=== PATIENT | male | born 1990 | race African-American/Black ===

== ENCOUNTER 2019-09-01 18:03 | Emergency (ER) | payer MEDICAID ==
[~2019-09-01] VITALS: Ht 162.6 cm; Wt 83.5 kg
[2019-09-01 18:20] VITALS: BP 138/86
--- NOTE | 2019-09-01 18:28 | NUR ---
ER Nurse Note: Patient walked in to ER from home due to N/V/D and body aches x 3days. Patient alert and oriented x4 and amulatory. Skin clean and intact. Calm and cooperative. No acute distress noted at this time.
--- NOTE | 2019-09-01 18:40 | NUR ---
ED Nurse Note: blood collected and sent to lab.
--- NOTE | 2019-09-01 18:46 | NUR ---
ED Nurse Note: pt went down for CT in stable condition.
--- NOTE | 2019-09-01 19:00 | Emergency Room Report ---
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 Paramedics came to the scene and evaluated him and reported that he had elevated blood pressure and heart rate however was a stabilized and blood pressure went down. They gave him the option to return to the emergency room in an hour if symptoms worsen. Patient reports that when he was a kid he was diagnosed with irregular heartbeat and having PVCs however has not seen a trash collector supervisor yet. Patient reports that up until a month ago he was drinking on daily basis and doing marijuana smoke as well as tobacco smoke. Patient continues to smoke tobacco however reports that a month ago he stopped smoking marijuana as well as drinking alcohol. At this time denies vomiting and abdominal pain however does complain of 3 bouts of diarrhea with generalized body ache that started 3 days ago with cough and congestion. Patient reports that due to his symptoms he has been taking DayQuil and NyQuil. Feeling lightheaded and reports that he has vertigo in the left ER prior to his near syncope episode. Complains of minor tinnitus however denies any head injury or fall. Erythema of the inner ear and left ear is noted. Denies urinary symptoms , chest pain, shortness of breath, palpitation no other associated symptoms. Allergies: Coded Allergies: No Known Allergies (Unverified , 09/01/19) Patient History Past Medical History: see triage record Past Surgical History: none Pertinent Family History: none Social History: Reports: smoking, alcohol use Immunizations: UTD Reviewed Nursing Documentation: PMH: Agreed; PSxH: Agreed Nursing Documentation-PMH Hx Asthma: Yes Review of Systems All Other Systems: negative except mentioned in HPI Physical Exam Vital Signs Date Time Temp Pulse Resp B/P (MAP) Pulse Ox O2 Delivery O2 Flow Rate FiO2 09/01/19 18:14 97.7 85 18 138/86 (103) 97 Room Air Sp02 EP Interpretation: reviewed, normal General Appearance: no apparent distress, alert, GCS 15, non-toxic Head: normocephalic, atraumatic Eyes: bilateral eye normal inspection, bilateral eye PERRL ENT: hearing grossly normal, normal pharynx, no angioedema, normal voice Neck: full range of motion, supple/symm/no masses Respiratory: chest non-tender, lungs clear, normal breath sounds, no wheezing, speaking full sentences Cardiovascular #1: regular rate, rhythm, no edema Cardiovascular #2: 2+ carotid (R), 2+ carotid (L), 2+ radial (R), 2+ radial (L) , 2+ dorsalis pedis (R), 2+ dorsalis pedis (L) Gastrointestinal: normal bowel sounds, non tender, soft, non-distended, no guarding, no rebound Rectal: deferred Genitourinary: normal inspection, no CVA tenderness Musculoskeletal: back normal, gait/station normal, normal range of motion, non- tender Neurologic: alert, oriented x3, responsive, motor strength/tone normal, sensory intact, speech normal Psychiatric: judgement/insight normal, memory normal, mood/affect normal, no suicidal/homicidal ideation Skin: no rash Lymphatic: no adenopathy Medical Decision Making PA Attestation All my diagnosis and treatment plans were reviewed ad discussed with my supervising physician Dr. 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 Paramedics came to the scene and evaluated him and reported that he had elevated blood pressure and heart rate however was a stabilized and blood pressure went down. They gave him the option to return to the emergency room in an hour if symptoms worsen. Patient reports that when he was a kid he was diagnosed with irregular heartbeat and having PVCs however has not seen a trash collector supervisor yet. Patient reports that up until a month ago he was drinking on daily basis and doing marijuana smoke as well as tobacco smoke. Patient continues to smoke tobacco however reports that a month ago he stopped smoking marijuana as well as drinking alcohol. At this time denies vomiting and abdominal pain however does complain of 3 bouts of diarrhea with generalized body ache that started 3 days ago with cough and congestion. Patient reports that due to his symptoms he has been taking DayQuil and NyQuil. Feeling lightheaded and reports that he has vertigo in the left ER prior to his near syncope episode. Complains of minor tinnitus however denies any head injury or fall. Erythema of the inner ear and left ear is noted. Denies urinary symptoms , chest pain, shortness of breath, palpitation no other associated symptoms. Ddx considered but are not limited to: Dizziness due to alcohol intoxication, dizziness unspecified, dizziness due to head trauma, dizziness secondary to cardiac reasons, syncope secondary to cardiac, second Hardy to electrolyte abnormality, neurological deficits, unspecified Vital signs: are WNL, pt. is afebrile H&PE are most consistent with: Near syncope unspecified, URI, gastroenteritis, vertigo, otitis media ORDERS: CBC, CMP, UA, tox screen, CK, EtOH, tox screen, chest x-ray, EKG, head CT noncontrast, Augmentin, Phenergan ER intervention: NS bolus DISCHARGE: At this time pt. is stable for d/c to home. Will provide printed patient care instructions, and any necessary prescriptions. Care plan and follow up instructions have been discussed with the patient prior to discharge. Follow-up with your trash collector supervisor regarding your past history of PVCs also if worsening symptoms return to emergency room. Primary care physician needs to follow-up with you in order to do further evaluation for your symptoms. EKG Diagnostic Results Rate: normal Rhythm: NSR ST Segments: no acute changes Other Impression No acute ST changes Chest X-Ray Diagnostic Results Chest X-Ray Diagnostic Results : Chest X-Ray Ordered: Yes # of Views/Limited/Complete: 1 View Indication: Other EP Interpretation: Yes LISA Xray: Interpretation reviewed, by supervising MD, and agrees with findings. Interpretation: no consolidation, no effusion, no pneumothorax Impression: No acute disease Electronically Signed by: Annmarie Downs PA-C CT/MRI/US Diagnostic Results CT/MRI/US Diagnostic Results : Imaging Test Ordered: Head CT no contrast Impression Within normal limits Last Vital Signs Date Time Temp Pulse Resp B/P (MAP) Pulse Ox O2 Delivery O2 Flow Rate FiO2 09/01/19 18:20 85 18 Room Air 09/01/19 18:20 97.7 138/86 97 Disposition: HOME, SELF-CARE Condition: Stable Patient Instructions: Near-Syncope, [id number], Otitis Media, Adult, Easy-to- Read, Vertigo, Viral Gastroenteritis, Adult, [id number] Additional Instructions: Follow-up with your trash collector supervisor regarding your past history of PVCs also if worsening symptoms return to emergency room. Primary care physician needs to follow-up with you in order to do further evaluation for your symptoms. Annmarie Engle Sep 01, 2019 19:00
[2019-09-01 19:08] LABS: BASOPHILS % (AUTO) 1.2 % (0.0-2.0); EOSINOPHILS % (AUTO) 1.6 % (0.0-3.0); HEMOGLOBIN 15.7 G/DL (14.2-18.0); LYMPHOCYTES % (AUTO) 23.9 % (20.0-45.0); MEAN CORPUSCULAR VOLUME 89 FL (80-99); NEUTROPHILS % (AUTO) 64.4 % (45.0-75.0); PLATELET COUNT 277 K/UL (150-450); RED BLOOD COUNT 5.07 M/UL (4.70-6.10); RED CELL DISTRIBUTION WIDTH 10.4 % (11.6-14.8); WHITE BLOOD COUNT 7.9 K/UL (4.8-10.8)
[2019-09-01 19:11] LABS: ANION GAP 8 mmol/L (5-15); BLOOD UREA NITROGEN 10 mg/dL (7-18); CALCIUM 9.3 MG/DL (8.5-10.1); CARBON DIOXIDE 25 MMOL/L (21-32); CHLORIDE 101 MMOL/L (98-107); POTASSIUM 4.1 MMOL/L (3.5-5.1); SODIUM 134 MMOL/L (136-145)
--- NOTE | 2019-09-01 19:11 | Diagnostic Imaging Report ---
Indications: Pain, nausea, vomiting, dizziness Technique: Spiral acquisitions obtained through the brain. Angled axial and coronal 5 x 5 mm slices were reconstructed. Total dose length product 1304 mGycm. CTDI vol(s) 60 mGy. Dose reduction achieved using automated exposure control Comparison: None. Findings: No acute intracranial hemorrhage or edema. No mass effect or midline shift. Normal childers-white differentiation. Normal size ventricles and extra-axial CSF spaces. Visualized orbits and sinuses are unremarkable. The calvarium is intact. Impression: Negative This agrees with the preliminary interpretation provided overnight by [facility]. The CT scanner at [facility] is accredited by the [employer] and the scans are performed using protocols designed to limit radiation exposure to as low as reasonably achievable to attain images of sufficient resolution adequate for diagnostic evaluation.
[2019-09-01 19:12] LABS: APPEARANCE,URINE CLEAR; BILIRUBIN, URINE NEGATIVE (NEGATIVE); GLUCOSE, URINE (UA) NEGATIVE (NEGATIVE); KETONES,URINE NEGATIVE (NEGATIVE); LEUKOCYTE ESTERASE ,URINE NEGATIVE (NEGATIVE); NITRITE,URINE NEGATIVE (NEGATIVE); PH,URINE 6.5 (4.5-8.0); PROTEIN,URINE NEGATIVE (NEGATIVE); UROBILINOGEN,URINE NORMAL MG/DL (0.0-1.0)
[2019-09-01 19:15] LABS: ALANINE AMINOTRANSFERASE 48 U/L (12-78); ALKALINE PHOSPHATASE 116 U/L (46-116); ASPARTATE AMINO TRANSFERASE 25 U/L (15-37); BILIRUBIN,TOTAL 0.3 MG/DL (0.2-1.0); CREATINE KINASE 361 U/L (26-308)
[2019-09-01 19:26] LABS: COLOR,URINE PALE YELLOW
--- NOTE | 2019-09-01 19:30 | NUR ---
ED Nurse Note: Received patient from Bill GarciaRN patient at no distress at this time, will continue to monitor
[2019-09-01] MEDS ORDERED: PHENERGAN25 M1 ORAL (20:33)
[2019-09-01] MEDS ORDERED: AUGMENTIN 875-1 EAC1 ORAL (20:33)
[2019-09-01 20:40] VITALS: BP 129/76
--- NOTE | 2019-09-01 20:40 | NUR ---
ER DISCHARGE NOTE: Patient is cleared to be discharged per ERMD, pt is aox4, on room air, with stable vital signs. pt was given dc and prescription instructions, pt was able to verbalize understanding, pt id band and iv site removed without complications. pt is able to ambulate with steady gait. pt took all belongings.
--- NOTE | 2019-09-02 12:41 | Diagnostic Imaging Report ---
Indication: Chest pain Technique: One view of the chest Comparison: none Findings: Lungs and pleural spaces are clear. Heart size is normal Impression: No acute process
== END 2019-09-01 20:40 | disposition home or self-care (01) ==
LOC: EMR 18:22
DX: R55 Syncope and collapse (principal); R42 Dizziness and giddiness; K52.9 Noninfective gastroenteritis and colitis, unspecified; F17.200 Nicotine dependence, unspecified, uncomplicated; J45.909 Unspecified asthma, uncomplicated; I49.9 Cardiac arrhythmia, unspecified
CPT/HCPCS: 36415; 70450; 71045; 80053; 80307; 81001; 82550; 84484; 85025; 93005; 96360; G0480; Z7502; 99284

== ENCOUNTER 2019-09-29 17:16 | Emergency (ER) | payer MEDICAID ==
[~2019-09-29] VITALS: Ht 162.6 cm; Wt 77.1 kg
[~2019-09-29 17:16] MED LIST: AUGMENTIN 875-1 EAC1 ORAL; PHENERGAN25 M1 ORAL
--- NOTE | 2019-09-29 17:28 | NUR ---
ED Nurse Note: pt states thats hes been feeling dizzy, with headaches, and feels like fainting for x3 days. pt states episodes of diarrhea 3-4x day. pt urine specimen obtained, specimen sent to lab
[2019-09-29 17:32] VITALS: BP 119/84
--- NOTE | 2019-09-29 17:47 | NUR ---
ED Nurse Note: xray at bedside.
[2019-09-29 18:05] LABS: APPEARANCE,URINE CLEAR; BILIRUBIN, URINE NEGATIVE (NEGATIVE); COLOR,URINE PALE YELLOW; GLUCOSE, URINE (UA) NEGATIVE (NEGATIVE); KETONES,URINE NEGATIVE (NEGATIVE); LEUKOCYTE ESTERASE ,URINE NEGATIVE (NEGATIVE); NITRITE,URINE NEGATIVE (NEGATIVE); PH,URINE 6.5 (4.5-8.0); PROTEIN,URINE NEGATIVE (NEGATIVE); UROBILINOGEN,URINE NORMAL MG/DL (0.0-1.0)
[2019-09-29 18:08] LABS: BASOPHILS % (AUTO) 1.5 % (0.0-2.0); EOSINOPHILS % (AUTO) 1.8 % (0.0-3.0); HEMATOCRIT 44.1 % (42.0-52.0); HEMOGLOBIN 15.5 G/DL (14.2-18.0); LYMPHOCYTES % (AUTO) 33.1 % (20.0-45.0); MEAN CORPUSCULAR VOLUME 87 FL (80-99); MONOCYTES % (AUTO) 9.9 % (1.0-10.0); NEUTROPHILS % (AUTO) 53.7 % (45.0-75.0); PLATELET COUNT 289 K/UL (150-450); RED BLOOD COUNT 5.07 M/UL (4.70-6.10); RED CELL DISTRIBUTION WIDTH 9.9 % (11.6-14.8); WHITE BLOOD COUNT 7.5 K/UL (4.8-10.8)
[2019-09-29 18:28] LABS: ANION GAP 12 mmol/L (5-15); BLOOD UREA NITROGEN 13 mg/dL (7-18); CALCIUM 9.2 MG/DL (8.5-10.1); CARBON DIOXIDE 24 MMOL/L (21-32); CHLORIDE 105 MMOL/L (98-107); CREATININE 1.1 MG/DL (0.55-1.30); SODIUM 141 MMOL/L (136-145)
[2019-09-29 18:33] LABS: ALANINE AMINOTRANSFERASE 48 U/L (12-78); ALBUMIN 3.9 G/DL (3.4-5.0); ALBUMIN/GLOBULIN RATIO 1.1 (1.0-2.7); ALKALINE PHOSPHATASE 115 U/L (46-116); ASPARTATE AMINO TRANSFERASE 18 U/L (15-37); BILIRUBIN,TOTAL 0.3 MG/DL (0.2-1.0)
--- NOTE | 2019-09-29 19:06 | Emergency Room Report ---
History of Present Illness General Chief Complaint: General Complaint Source: Patient Present Illness HPI 29-year-old male with significant history of alcohol abuse here complaining of lightheadedness x2 months. Patient was here at [facility] a month ago for similar symptoms feeling faint as reported that he had just stopped drinking on daily basis a month prior to that. Patient reports that before he used to drink alcohol every day and decided to quit drinking altogether. Last time I also saw the patient and advised him to follow-up with her primary care provider regards to management of anxiety as well as withdrawal symptoms from alcohol. Patient appears today with similar symptoms,, reporting lightheadedness and dizziness however denies head injury, chest pain, shortness of breath, palpitation, abdominal pain, nausea vomiting. Reports that when he takes deep breaths his breathing becomes better. Denies suicidal homicidal ideation. Denies recent alcohol intake or drug use. Allergies: Coded Allergies: No Known Allergies (Unverified , 09/01/19) Patient History Past Medical History: see triage record Past Surgical History: unable to obtain Pertinent Family History: none Immunizations: UTD Reviewed Nursing Documentation: PMH: Agreed; PSxH: Agreed Nursing Documentation-PMH Past Medical History: No History, Except For Hx Asthma: Yes Review of Systems All Other Systems: negative except mentioned in HPI Physical Exam Vital Signs Date Time Temp Pulse Resp B/P (MAP) Pulse Ox O2 Delivery O2 Flow Rate FiO2 09/29/19 17:23 98.2 82 20 119/84 (96) 96 Room Air Sp02 EP Interpretation: reviewed, normal General Appearance: no apparent distress, alert, GCS 15, non-toxic Head: normocephalic, atraumatic Eyes: bilateral eye normal inspection, bilateral eye PERRL ENT: hearing grossly normal, normal pharynx, no angioedema, normal voice Neck: full range of motion, supple/symm/no masses Respiratory: chest non-tender, lungs clear, normal breath sounds, no rhonchi, no wheezing, speaking full sentences Cardiovascular #1: regular rate, rhythm, no edema, no murmur, normal capillary refill Cardiovascular #2: 2+ carotid (R), 2+ carotid (L), 2+ radial (R), 2+ radial (L) Gastrointestinal: normal bowel sounds, non tender, soft, non-distended, no guarding, no hernia, no rebound Genitourinary: no CVA tenderness Musculoskeletal: back normal, digits/nails normal, gait/station normal, no calf tenderness Neurologic: normal inspection, alert, roll on man III-XII nml as tested Psychiatric: judgement/insight normal, memory normal, mood/affect normal, no suicidal/homicidal ideation, anxious Skin: no rash Lymphatic: normal inspection Medical Decision Making PA Attestation All diagnoses and treatment plans were reviewed and discussed with my supervising physician Dr. Mariscal Diagnostic Impression: Primary Impression: Anxiety Additional Impressions: Alcohol withdrawal Light-headed feeling ER Course 29-year-old male with significant history of alcohol abuse here complaining of lightheadedness x2 months. Patient was here at [facility] a month ago for similar symptoms feeling faint as reported that he had just stopped drinking on daily basis a month prior to that. Patient reports that before he used to drink alcohol every day and decided to quit drinking altogether. Last time I also saw the patient and advised him to follow-up with her primary care provider regards to management of anxiety as well as withdrawal symptoms from alcohol. Patient appears today with similar symptoms,, reporting lightheadedness and dizziness however denies head injury, chest pain, shortness of breath, palpitation, abdominal pain, nausea vomiting. Reports that when he takes deep breaths his breathing becomes better. Denies suicidal homicidal ideation. Denies recent alcohol intake or drug use. Ddx considered but are not limited to: generalized anxiety disorder, panic attack, depression with psycotic featurs, bipolar disorder, drug overdose Vital signs: are WNL, pt. is afebrile H&PE are most consistent with: Alcohol withdrawal, anxiety, lightheadedness secondary to anxiety and alcohol withdrawal ORDERS: EKG, chest x-ray, CBC, CMP, UA, tox screen, ED INTERVENTIONS: NS bolus DISCHARGE: At this time pt. is stable for d/c to home. Will provide printed patient care instructions, and any necessary prescriptions. Care plan and follow up instructions have been discussed with the patient prior to discharge. I gave patient a list of mental health facilities to follow-up with a psychiatrist for management of alcohol withdrawal patient agrees. Also follow- up with her primary care physician. 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 Interpretation: no consolidation, no effusion Impression: No acute disease Electronically Signed by: Annmarie Downs PA-C Last Vital Signs Date Time Temp Pulse Resp B/P (MAP) Pulse Ox O2 Delivery O2 Flow Rate FiO2 09/29/19 17:32 82 20 Room Air 09/29/19 17:32 98.2 119/84 96 Disposition: HOME, SELF-CARE Condition: Stable Referrals: NON PHYSICIAN (PCP) Patient Instructions: Alcohol Withdrawal, [id number], Generalized Anxiety Disorder Additional Instructions: Follow-up with your primary care provider for referral to a psychiatrist I will also give you a list of mental health facilities that he can contact us if he can be seen by a psychiatrist sooner. You are experiencing the symptoms for the past 2 months due to alcohol withdrawal as he decided not to drink anymore alcohol which is a great decision. However you need to be started on a daily dose of antianxiety medication and also acute anxiety medication that has to be started by your primary care physician or a psychiatrist and cannot be started in the emergency room setting. As it may cause drowsiness and will interfere with your work. Return to the emergency room if worsening symptoms Annmarie Engle Sep 29, 2019 19:06
[2019-09-29 19:20] VITALS: BP 126/84
--- NOTE | 2019-09-30 11:36 | Diagnostic Imaging Report ---
Indication: Chest pain Technique: One view of the chest Comparison: 09/01/2019 Findings: Lungs and pleural spaces are clear. Heart size is normal. No significant change Impression: No acute process
== END 2019-09-29 19:19 | disposition home or self-care (01) ==
LOC: EMR 17:51
DX: F41.9 Anxiety disorder, unspecified (principal); F10.239 Alcohol dependence with withdrawal, unspecified; R42 Dizziness and giddiness
CPT/HCPCS: 36415; 71045; 80053; 80307; 81001; 84484; 85025; 93005; 96360; G0480; Z7502; 99284